=== PATIENT | male | born 1965 | race Caucasian/White ===

== ENCOUNTER 2023-06-13 15:56 | Emergency (ER) | payer OTHER ==
[~2023-06-13] VITALS: Wt 50.3 kg
[2023-06-14] MEDS ORDERED: CARBAMAZEPINE100 M1 PO (00:22)
== END 2023-06-14 00:31 | disposition home or self-care (01) ==
LOC: ED 15:56
DX: G50.0 Trigeminal neuralgia (principal); Z87.891 Personal history of nicotine dependence